=== PATIENT | male | born 1960 | race Caucasian/White ===

== ENCOUNTER 2022-04-17 17:30 | Emergency (ER) | payer OTHER ==
[~2022-04-17] VITALS: Ht 167.6 cm; Wt 77.1 kg
--- NOTE | 2022-04-17 18:00 | NUR ---
Pt arrived with c/o L Shoulder Injury d/t work related. Seen by Dr. Hall for MSE.
--- NOTE | 2022-04-17 18:10 | NUR ---
L Shoulder Sling provided for the pt per MDs order.
--- NOTE | 2022-04-17 18:16 | NUR ---
Patient discharged to home in stable condition. Written and verbal after care instructions given. Patient verbalizes understanding of instructions. Stressed follow up or return to ER for worsening s/s.
== END 2022-04-17 18:16 | disposition home or self-care (01) ==
LOC: ER 17:30
DX: S46.912A Strain of unspecified muscle, fascia and tendon at shoulder and upper arm level, left arm, initial encounter (principal); X50.9XXA Other and unspecified overexertion or strenuous movements or postures, initial encounter; Y93.G9 Activity, other involving cooking and grilling; Y92.512 Supermarket, store or market as the place of occurrence of the external cause; Y99.0 Civilian activity done for income or pay
CPT/HCPCS: 73030; A4663